=== PATIENT | female | born 1965 | race Caucasian/White ===

== ENCOUNTER 2017-03-08 11:32 | Emergency (ER) | payer OTHER ==
[~2017-03-08] VITALS: Ht 160 cm; Wt 99.8 kg
--- NOTE | 2017-03-08 11:33 | NUR ---
Arrived via BLS ambulance from [place] where she had a slip and fall with resulting right lateral swelling. Patient to ER [facility] for evaluation. Side rails up. Assumed care of patient.
[2017-03-08 11:35] VITALS: BP_SYST 163
--- NOTE | 2017-03-08 11:40 | NUR ---
LEONEL Luis at bedside examining patient.
[2017-03-08] MEDS ORDERED: IBUPROFEN 800 MG TABLET PO ONE (12:00)
[2017-03-08] MEDS ORDERED: HYDROcodone/ACETAMIN 5-325 MG TAB (NORCO/ VICODIN) PO ONE (12:45)
[2017-03-08 13:30] VITALS: BP_SYST 145
--- NOTE | 2017-03-08 13:30 | NUR ---
Patient given written and verbal discharge instructions and verbalizes understanding. ER MD discussed with patient the results and treatment provided. Patient in stable condition. ID arm band removed. Rx of [place] given. Patient educated on pain management and to follow up with PMD. Pain Scale 3/10. Opportunity for questions provided and answered.
== END 2017-03-08 13:30 | disposition home or self-care (01) ==
LOC: SED 11:32
DX: S82.64XA Nondisplaced fracture of lateral malleolus of right fibula, initial encounter for closed fracture (principal); W01.0XXA Fall on same level from slipping, tripping and stumbling without subsequent striking against object, initial encounter; Y93.01 Activity, walking, marching and hiking; Y92.89 Other specified places as the place of occurrence of the external cause; Y99.8 Other external cause status
CPT/HCPCS: 99284